=== PATIENT | female | born 1960 | race Caucasian/White ===

== ENCOUNTER 2016-06-24 22:36 | Emergency (ER) | payer OTHER ==
[~2016-06-24] VITALS: Ht 157.5 cm; Wt 65.0 kg
[2016-06-24] MEDS ORDERED: MOTRIN800 MG PO (23:42)
[2016-06-24] MEDS ORDERED: NORCO 5/3251 TABLET PO (23:42)
[2016-06-25 00:03] VITALS: BP 110/81
== END 2016-06-25 00:04 | disposition home or self-care (01) ==
LOC: EME 22:36 → EXP 22:36
DX: S83.002A Unspecified subluxation of left patella, initial encounter (principal); X50.0XXA Overexertion from strenuous movement or load, initial encounter
CPT/HCPCS: 73564; 99281; 99284